=== PATIENT | female | born 1955 | race Hispanic/Latino ===

== ENCOUNTER 2019-05-24 16:11 | Inpatient (IN) | payer OTHER ==
[~2019-05-24] VITALS: Ht 157.5 cm; Wt 131.5 kg
[~2019-05-24 16:11] MED LIST: AMITRIPTYLINE H25 MG PO; ESIDRIX25 MG PO; GABAPENTIN300 MG PO; GEMFIBROZIL600 MG PO; LANTUS100 UNITS/ SC; METFORMIN HCL500 M2 PO; METOPROLOL TART50 MG PO; SERTRALINE HCL50 MG PO; ULTRAM 50MG50 MG PO; VICTOZA 3-0.6 MG/0.1; ZESTRIL10 MG PO
--- OUTSIDE RECORDS SUMMARY | 2019-05-24 16:13 | XMS REPORT ---
Author Author [facility] Address Unknown Phone Unavailable Care Team Providers Care Presales Senior Specialist Name Role Phone Unavailable Unavailable Payers Payer Name Policy Type Policy Number Effective Date Expiration Date Problems This patient has no known problems. Allergies, Adverse Reactions, Alerts Allergy Name Allergy Type Status Severity Reaction(s) Onset Date Inactive Date Treating Clinician Comments No Known Allergies DA Active U 2018-11-23 00:00:00 Medications This patient has no known medications. Encounters Start Date/Time End Date/Time Encounter Type Admission Type Attending Clinicians Care Facility Care Department Encounter ID 2019-05-20 06:44:00 2019-05-20 06:44:00 Outpatient [id number] Results Test Description Test Time Test Comments Text Results Atomic Results Result Comments - XR SHOULDER 1 V LT 2019-01-05 14:04:00 FAX: Danyell Moore MD [phone] [place]: St: [facility] FAX: Fannie Oconnor MD [phone] Name: MARQUIS DYE [facility] : 1955 Age/S: 63/F [address] Unit #: [id number] Loc: [place] [address] Phys: Danyell France MD Acct: [id number] Dis Date: Status: REG CLI PHONE #: [phone] Exam Date: 01/05/2019 1447 FAX #: [phone] Reason: PICC PLACEMENT EXAMS: CPT CODE: [id number] XR SHOULDER 1 V LT 06274 Study: - XR SHOULDER 1 V LT 01/05/2019 1:12 PM Patient Name: MARQUIS DYE MR: [id number] : 1955; Age: 63 years y/o Female Ordering Physician: Danyell France MD Clinical Indication: PICC PLACEMENT Comparison: January 05, 2019 x-ray LEFT SHOULDER, 1 view: No acute fracture, dislocation, or suspicious focal osseous lesion. Left PICC line tip overlies the right superior vena cava The soft tissues are normal. Impression: Left PICC line tip projects in good position. SL: [id number] Electronically Signed by Og Boudreaux on 9 at 1404 Reported and signed by: Ricardo Boudreaux M.D. CC: Danyell France MD; Fannie Barreto MD Technologist: RT Lake(R) Trnscrd Date/Time/By: 01/05/2019 (3260) : By: [email or web address] Orig Print D/T: S: 01/05/2019 (7957) PAGE 1 Signed Report - XR SHOULDER 1 V RT 2019-01-05 12:42:00 FAX: Danyell Moore MD [phone] [place]: St: REG FAX: Fannie Oconnor MD [phone] Name: MARQUIS DYE [facility] Pietro Spann : 1955 Age/S: 63/F [address] [place] [address] Unit #: [id number] Loc: [place] [address] Phys: Danyell France MD Acct: [id number] Dis Date: Status: REG CLI PHONE #: [phone] Exam Date: 01/05/2019 1237 FAX #: [phone] Reason: CHECK PICC PLACEMENT EXAMS: CPT CODE: [id number] XR SHOULDER 1 V RT 11759 Study: - XR SHOULDER 1 V RT 01/05/2019 11:53 AM Patient Name: MARQUIS DYE MR: [id number] : 1955; Age: 63 years y/o Female Ordering Physician: Danyell France MD Clinical Indication: CHECK PICC PLACEMENT Comparison: December 30, 2018 x-ray RIGHT SHOULDER, 1 view: No acute fracture, dislocation, or suspicious focal osseous lesion. Right PICC line tip overlies the proximal superior vena cava. The soft tissues are normal. Impression: Right PICC line tip overlies the proximal superior vena cava. SL: [id number] at 1242 Reported and signed by: Ricardo Boudreaux M.D. CC: Danyell France MD; Fannie Barreto MD Technologist: Shelly Salgado, RT(R) Trnscrd Date/Time/By: 01/05/2019 (8675) : By: [email or web address] Orig Print D/T: S: 01/05/2019 (6333) PAGE 1 Signed Report - XR SHOULDER 1 V RT 2018-12-30 13:17:00 FAX: Danyell Moore MD [phone] [place]: St: [facility] FAX: Fannie Oconnor MD [phone] Name: MARQUIS DYE [facility] [place] : 1955 Age/S: 63/F [address] [place] [address] Unit #: [id number] Loc: [place] [address] Phys: Danyell France MD Acct: [id number] Dis Date: Status: REG SDC PHONE #: [phone] Exam Date: 12/30/2018 1315 FAX #: [phone] Reason: PICC PLACEMENT EXAMS: CPT CODE: [id number] XR SHOULDER 1 [place] [address]43 RIGHT SHOULDER, ONE VIEW: HISTORY: Line placement. COMPARISON EXAM: No recent pertinent exams for comparison. This single portable view was obtained at 1306 hours on 12/30/2018 and shows placement of a right arm PICC with the tip projected over the superior luther a cava. IMPRESSION: 1. Status post right arm PICC placement. SL:01 at 1317 Reported and signed by: Tino Magallon M.D. CC: Danyell France MD; Fannie Barreto MD Technologist: RT Candace(R), RTT Trnscrd Date/Time/By: 12/30/2018 (3131) : By: [email or web address] Orig Print D/T: S: 12/30/2018 (4180) PAGE 1 Signed Report - MRI LOW EXT W/O CONT LT 2018-12-18 11:20:00 FAX: Julián Louie MD [phone] [place]: St: REG FAX: Danyell Moore MD [phone] FAX: Fannie Oconnor MD [phone] Name: MARQUIS DYE [facility] : 1955 Age/S: 63/F [address] [place] [address] Unit #: [id number] Loc: [place] [address] Phys: Julián Donaldson MD Acct: [id number] Dis Date: Status: REG RCR PHONE #: [phone] Exam Date: 12/18/2018 0849 FAX #: [phone] Reason: L97.522 LT GREAT TOE ULCER/OSTEOMYELITIS EXAMS: CPT CODE: [id number] [place] [address] - MRI LOW EXT W/O CONT LT, 12/18/2018 7:06 AM INDICATION: Great toe ulcer. Osteomyelitis COMPARISON: None TECHNIQUE: Multi- planar, multi-sequence MR imaging of the left foot was performed using routine protocol without gadolinium-based contrast. . FINDINGS: . Bones: There is T2 hyperintensity within the distal aspect 1st proximal phalanx. Very faint areas of diminished T1 signal. Otherwise marrow signals within normal limits. No evidence for acute fracture. . Soft tissues: There is subcutaneous edema along the dorsum of the foot and more focally along the great toe. There appears to be a small wound along the plantar aspect of the great toe. There is a small amount of T2 hyperintense fluid extending along the wound. Otherwise soft tissues are unremarkable. .] Joints: Anatomic alignment of the midfoot. Mild degenerative changes at the 1st MTP joint. Otherwise joint spaces are preserved. Negative for joint effusion. . Extensor tendons: Partially imaged but within normal limits. . Peroneal tendons: Partially imaged but within normal limits. . Flexor tendons: Moderate fluid along the flexor tendons at the K[place] of Sán[place] . Plantar fascia: Unremarkable. . Additional Comments: None. IMPRESSION: 1. Soft tissue wound along the plantar aspect of foot. Adjacent fluid within the wound track and/or developing phlegmon. 2. Mild edema in the 1st proximal phalanx which may be secondary to hyperemia versus early osteomyelitis. Suggest follow-up imaging. 3. Mild dorsal subcutaneous edema either generalized edema or cellulitis. PAGE 1 Signed Report (CONTINUED) FAX: Julián Louie MD [phone] [place]: St: REG FAX: Danyell Moore MD [phone] FAX: Fannie Oconnor MD [phone] Name: MARQUIS DYE [facility] : 1955 Age/S: 63/F [address] [place] [address] Unit #: [id number] Loc: [place] [address] Phys: Julián Donaldson MD Acct: [id number] Dis Date: Status: REG RCR PHONE #: [phone] Exam Date: 12/18/2018 0849 FAX #: [phone] Reason: L97.522 LT GREAT TOE ULCER/OSTEOMYELITIS EXAMS: CPT CODE: [id number] MRI LOW EXT W/[place] [address] <Continued> SL: KRE-H at 1120 Reported and signed by: Miles Garcia M.D. CC: Julián Donaldson MD; Danyell France MD; Fannie Barreto MD Technologist: Haley Eagle, RT(R)(MR) Trnscrd Date/Time/By: 12/18/2018 (1120) : By: [email or web address] Orig Print D/T: S: 12/18/2018 (1123) PAGE 2 Signed Report SED RATE WESTERGREN 2018-11-30 12:39:00 SED RATE WESTERGREN (test code=SEDW) 48 mm/hr 0-20 - XR TOE(S) 2+V [id number] 12:16:00 FAX: Lani Lopez Si [phone] [place]: St: REG FAX: Julián Louie MD [phone] FAX: Danyell Moore MD [phone] Name: MARQUIS DYE [facility] : 1955 Age/S: 63/F [address] [place], [place] [address] Unit #: [id number] Loc: [place] [address] Phys: Julián Donalsdon MD Acct: [id number] Dis Date: Status: REG RCR PH ONE #: [phone] Exam Date: 11/30/2018 1159 FAX #: [phone] Reason: L97.522, LEFT GREAT TOE ULCER.E11.621 , DM EXAMS: CPT CODE: [id number] XR TOE(S) 2+[place] [address] Study: - XR T OE(S) 2+V LT 11/30/2018 10:41 AM Patient Name: MARQUIS CHOUDHARY [facility] MR: [id number] : 1955; Age: 63 years y/o Female [facility] Physician: Julián Donaldson MD Clinical Indication: L97.522, LEFT GREAT TOE ULCER.E11.621 , DM Comparison: None Left great toe, 3 views: 1. No acute fracture, dislocatio n, or suspicious focal osseous lesion. A focal projection laterally from the distal aspect of the 5th metatarsal on the AP image either represents old healed injury or small osteochondroma. 2. Mild osteoart hritis at the 1st MTP joint. 3. Mild to moderate diffuse soft tis td thickening about the left great toe consistent with edema from inflamm ation or infection. SL: [id number] at 1216 Reported and signed by: Ron Wharton M.D. CC: Trini Lopez MD; Julián ackerman MD; Danyell France MD Technologist: Cherelle Flores RT(R) Trnscrd Date/Time/By: 11/30/2018 (121) : By: [email or web address] Orig Print D/T: S: 11/30/2018 (0279) PAGE 1 Signed Report [id number] 11:40:00* Test Item Value Reference Range Comments PREALBUMIN (test code=PREALB) 19.5 mg/dL 16.0-40.0 C REACTIVE [id number] 11:39:00* Test Item Value Reference Range Comments C REACTIVE PROTEIN (test code=CRP) 12.3 MG/L 0.0-2.9 HGBA1C%2018-11-30 11:35:00* Test Item Value Reference Range Comments HGBA1C% (test code=HGBA1C%) 7.3 %A1C 4.8-6.0
[2019-05-24] MEDS ORDERED: SODIUM CHLORIDE 0.9% 1000ML 1,000 ML IV STA (16:37)
[2019-05-24] MEDS ORDERED: VANCOMYCIN 1GM/NS 250 ML 250 ML IV ONE (16:45)
[2019-05-24] MEDS ORDERED: PIPER-TAZ 3.375 GM 50 ML IV ONE (16:45)
[2019-05-24] MEDS ORDERED: SODIUM CHLORIDE 0.9% 1000ML 1,000 ML ONE (17:35)
--- NOTE | 2019-05-24 17:50 | NUR ---
MD NOTIFIED OF PT BP 78/21 PER MD GIVE 2 LITERS NS BOLUS; ORDER READ BACK AND CONFIRMED
--- NOTE | 2019-05-24 18:04 | NUR ---
NOTIFIED OF PT BP ; PER SET UP CENTRAL LINE KIT
[2019-05-24 18:35] LABS: BASOPHILS # (AUTO) 0.1 (0.0-0.1); BASOPHILS % 0.4 % (0.0-1.0); EOSINOPHILS # (AUTO) 0.2 (0.0-0.4); EOSINOPHILS % 1.2 % (0.0-6.0); HEMATOCRIT 33.1 % (34.2-44.1); LYMPHOCYTES # (AUTO) 3.3 (1.0-3.2); LYMPHOCYTES % 20.5 % (18.0-39.1); MEAN CORPUSCULAR HEMOGLOBIN 28.6 pg (28-32); MEAN CORPUSCULAR HGB CONC 33.2 g/dL (31-35); MEAN CORPUSCULAR VOLUME 86.2 fL (81-99); MONOCYTES # (AUTO) 1.8 (0.2-0.8); MONOCYTES % 11.3 % (4.4-11.3); NEUTROPHILS # (AUTO) 10.2 (2.1-6.9); NEUTROPHILS % 64.2 % (38.7-80.0); PLATELET COUNT 180 x10e3/uL (140-360); RED BLOOD COUNT 3.84 x10e6/uL (3.6-5.1); RED CELL DISTRIBUTION WIDTH 14.6 % (11.7-14.4)
[2019-05-24 18:39] LABS: INR 0.95; PROTHROMBIN TIME 13.2 seconds (11.9-14.5)
[2019-05-24 18:54] LABS: ALANINE AMINOTRANSFERASE 33 IU/L (0-55); ALBUMIN 2.9 g/dL (3.5-5.0); ALBUMIN/GLOBULIN RATIO 0.8 (0.8-2.0); ALKALINE PHOSPHATASE 104 IU/L (40-150); ANION GAP 15.5 mmol/L (8-16); BLOOD UREA NITROGEN 43 mg/dL (7-26); BUN/CREATININE RATIO 13 (6-25); CALCIUM 8.8 mg/dL (8.4-10.2); CARBON DIOXIDE 20 mmol/L (22-29); CHLORIDE 97 mmol/L (98-107); CREATINE KINASE 195 IU/L (29-168); CREATININE, SERUM 3.27 mg/dL (0.57-1.11); EST GLOMERULAR FILTRATION RATE 14 ML/MIN (60-); GLUCOSE 156 mg/dL (74-118); MAGNESIUM 2.4 MG/DL (1.3-2.1); POTASSIUM 4.5 mmol/L (3.5-5.1); SODIUM 128 mmol/L (136-145)
[2019-05-24 19:04] LABS: B-TYPE NATRIURETIC PEPTIDE2 < 10.0 pg/mL (0-100)
[2019-05-24] MEDS ORDERED: NOREPINEPHRINE INJ 4MG/4ML 8 MG in DEXTROSE 5% 250ML 250 ML IV PRN (19:15)
[2019-05-24] MEDS ORDERED: NOREPINEPHRINE 8 MG/D5W 250 ML 250 ML IV PRN (19:15)
[2019-05-24 19:26] LABS: ACETAMINOPHEN < 3 ug/mL (10-30); SALICYLATE < 5.0 mg/dL (0-30)
[2019-05-24] MEDS ORDERED: ONDANSETRON HCL INJ 2MG/ML 2ML 2 MG/ML VIAL IV PRN (20:00)
[2019-05-24 20:06] LABS: BILIRUBIN,URINE NEGATIVE (NEGATIVE); CLARITY,URINE SL CLOUDY (CLEAR); COLOR,URINE YELLOW (YELLOW); KETONES,URINE NEGATIVE (NEGATIVE); LEUKOCYTE ESTERASE ,URINE MODERATE (NEGATIVE); NITRITE,URINE NEGATIVE (NEGATIVE); PROTEIN,URINE DIPSTICK NEGATIVE (NEGATIVE); URINE UROBILINOGEN 0.2 mg/dL (0.2 - 1)
--- NOTE | 2019-05-24 20:08 | Diagnostic Imaging Report ---
EXAMINATION: Head CT without contrast. HISTORY:Syncope and fall. Hypotension. COMPARISON:None. TECHNIQUE: Multidetector axial images were obtained from the foramen magnum to the vertex without contrast. The images were reconstructed using brain and bone algorithms. Thin section brain images were reformatted into coronal and sagittal planes. Dose modulation, iterative reconstruction, and/or weight based adjustment of the mA/kV was utilized to reduce the radiation dose to as low as reasonably achievable. Intravenous contrast: None IMAGE QUALITY: Suboptimal evaluation particularly of skull base and posterior fossa structures due to streak artifacts. FINDINGS: Skull/scalp: Mild left frontal scalp soft tissue edema. No radiopaque foreign body or soft tissue emphysema. No acute depressed or displaced calvarial fracture. Parenchyma: Nonspecific few, scattered supratentorial white matter hypodensity are likely related to small vessel ischemic changes. No acute hemorrhage, mass or acute major vascular territorial infarct. Arteries: No density suggestive of thrombosis. Dural sinuses: No abnormal density suggestive of thrombosis. Ventricles: No hydrocephalus or displacement. Extra-axial spaces: No abnormal density. Brain volume: Normal for age. Craniocervical junction: No mass, Chiari malformation, or basilar invagination. Sella: No mass. Paranasal/mastoid sinuses: Imaged portions unremarkable. IMPRESSION: 1. Mild left frontal scalp soft tissue edema. No acute fracture. 2. No acute posttraumatic intracranial abnormality. 3. Mild supratentorial white matter microvascular ischemic changes. Signed by: Dr. Monique Perez M.D. on 05/24/2019 8:05 PM
[2019-05-24 20:10] LABS: AMPHETAMINES SCREEN,URINE NEGATIVE (NEGATIVE); BENZODIAZEPINES SCREEN,URINE NEGATIVE (NEGATIVE); PHENCYCLIDINE SCREEN,URINE NEGATIVE (NEGATIVE)
[2019-05-24 20:17] LABS: BACTERIA,URINE MODERATE /HPF; EPITHELIAL CELLS,URINE FEW /LPF
[2019-05-24 20:18] LABS: AMORPHOUS SEDIMENT,URINE MODERATE (FEW); RENAL EPITHELIAL CELLS,URINE RARE
--- NOTE | 2019-05-24 20:19 | Diagnostic Imaging Report ---
History: Status post fall. Comparison studies: None Technique: Axial images were obtained through the cervical region.. Coronal and sagittal images reconstructed from the axial data. Dose modulation, iterative reconstruction, and/or weight based adjustment of the mA/kV was utilized to reduce the radiation dose to as low as reasonably achievable. Intravenous contrast: None Findings: Fractures: None. Soft tissue injuries: None. Atlantoaxial articulation: Intact. Alignment: Loss of normal cervical lordosis is either positional or due to muscle spasm. No scoliosis. No subluxation. Cervicomedullary junction: No abnormalities. The foramen magnum is patent. Soft tissues: A 1.3 cm ill-defined hypodense nodule in left lobe of thyroid gland. Vertebrae: No fractures, infection or neoplasm. Degenerative changes: Moderate degenerative changes with subchondral cyst in the anterior atlantodental joint. C3-C4: Mild left foraminal stenosis due to facet and uncovertebral arthrosis. C4-C5: Mild left foraminal stenosis due to facet and uncovertebral arthrosis. C5-C6: Mild left foraminal stenosis due to uncovertebral arthrosis. C6-C7: Mild degenerative disc disease. Posterior disc osteophyte complex without canal stenosis. Incidental finding: Age indeterminate fracture or dislocation of right clavicle (only seen in the marine equipment test engineer image). IMPRESSION: 1. No acute cervical spine fracture or dislocation. Loss of normal cervical lordosis is either positional or due to muscle spasm. 2. Ligament, spinal cord and or vascular abnormalities cannot be excluded on the basis of this examination. 3. Cervical spondylosis as detailed above. 4. Age indeterminate fracture/dislocation of right clavicle (only seen in marine equipment test engineer image). Signed by: Dr. Monique Perez M.D. on 05/24/2019 8:16 PM
[2019-05-24 20:31] LABS: EOSINOPHILS % (MANUAL) 3 % (0-7); LYMPHOCYTES % (MANUAL) 11 % (19-48); MONOCYTES % (MANUAL) 7 % (3.4-9.0); NEUTROPHILS % (MANUAL) 74 % (40-74); PLATELET ESTIMATE ADEQUATE; PLATELET MORPHOLOGY COMMENT NORMAL; RBC MORPHOLOGY COMMENT NORMAL
--- NOTE | 2019-05-24 20:39 | Diagnostic Imaging Report ---
EXAM: CHEST XRAY LINE PLACEMENT DATE: 05/24/2019 7:01 PM INDICATION: ^S/P RIGHT IJ CENTRAL LINE ^20190524 ^1910 COMPARISON: None FINDINGS: Suboptimal evaluation of the chest due to underpenetrated technique. Lines and tubes: A right IJ catheter is present. The tip is traced to the lower SVC level. Cardiac silhouette is enlarged. There is central pulmonary vascular congestion. Opacity at the lung bases may represent edema or small effusions. No large pneumothorax. Upper abdomen unremarkable. There is a fracture of the right clavicle with one bone width displacement near the junction of the proximal and distal thirds. The appearance suggests this may be chronic. IMPRESSION: 1. Cardiomegaly with pulmonary vascular congestion and edema or small effusions at the lung bases. 2. Right IJ catheter extends to the distal SVC. No pneumothorax is visualized. 3. Right clavicular fracture which may be chronic. Signed by: Dr. Kulwant Villalta M.D. on 05/24/2019 8:35 PM
--- NOTE | 2019-05-24 20:45 | Diagnostic Imaging Report ---
EXAM: FOOT LEFT COMPLETE DATE: 05/24/2019 4:37 PM INDICATION: Fall ^HYPOTENSION SYNCOPE ^20190524 ^1910 COMPARISON: None FINDINGS: 3 views of the left foot shows a nondisplaced comminuted fracture of the first proximal phalanx. There is extensive sclerosis suggesting that at least a portion of this fracture may be subacute. A plantar calcaneal enthesophyte is noted. Superficial surrounding soft tissue unremarkable. IMPRESSION: Comminuted fracture with sclerosis in the first proximal phalanx. This may represent subacute fracture although at the distal aspect of the phalanx, extending into the interphalangeal joint, there is an apparent acute component. Signed by: Dr. Kulwant Villalta M.D. on 05/24/2019 8:42 PM
[2019-05-24 21:30] VITALS: BP 118/67
[2019-05-24 22:00] VITALS: BP 102/55
[2019-05-24] MEDS ORDERED: PIPERACILLIN/TAZO 2.25 GM 50 ML IV SCH (22:00)
[2019-05-24 23:00] VITALS: BP 95/56
[2019-05-24] MEDS: FAMOTIDINE 20 MG/2 ML VIAL IV SCH (23:24)
[2019-05-24] MEDS: AZITHROMYCIN 500MG/NS 250 ML 250 ML IV SCH (23:24)
[2019-05-24] MEDS: MORPHINE SULFATE 2 MG/ML SYR 1ML IV PRN (23:25)
[2019-05-25] VITALS (25 sets, daily range): BP systolic 87–128; BP diastolic 47–77
[2019-05-25] MEDS: MORPHINE SULFATE 2 MG/ML SYR 1ML IV PRN ×5 (02:30→21:23)
[2019-05-25 05:12] LABS: BASOPHILS # (AUTO) 0.1 (0.0-0.1); BASOPHILS % 0.5 % (0.0-1.0); EOSINOPHILS # (AUTO) 0.3 (0.0-0.4); HEMATOCRIT 33.8 % (34.2-44.1); HEMOGLOBIN 11.1 g/dL (12.0-16.0); LYMPHOCYTES # (AUTO) 3.7 (1.0-3.2); LYMPHOCYTES % 28.5 % (18.0-39.1); MEAN CORPUSCULAR HEMOGLOBIN 28.2 pg (28-32); MEAN CORPUSCULAR HGB CONC 32.8 g/dL (31-35); MONOCYTES # (AUTO) 1.9 (0.2-0.8); MONOCYTES % 14.6 % (4.4-11.3); NEUTROPHILS # (AUTO) 6.9 (2.1-6.9); NEUTROPHILS % 52.5 % (38.7-80.0); PLATELET COUNT 204 x10e3/uL (140-360); RED BLOOD COUNT 3.93 x10e6/uL (3.6-5.1); RED CELL DISTRIBUTION WIDTH 14.4 % (11.7-14.4)
[2019-05-25 05:33] LABS: CREATINE KINASE 143 IU/L (29-168)
[2019-05-25 06:03] LABS: ALBUMIN 2.9 g/dL (3.5-5.0); ALBUMIN/GLOBULIN RATIO 0.8 (0.8-2.0); ANION GAP 10.8 mmol/L (8-16); CHOL/HDL RATIO 4.8 (3.0-3.6); CREATININE, SERUM 1.48 mg/dL (0.57-1.11); POTASSIUM 3.8 mmol/L (3.5-5.1)
[2019-05-25] MEDS: PIPERACILLIN/TAZO 2.25 GM 50 ML IV SCH ×3 (06:17→21:19)
--- NOTE | 2019-05-25 06:39 | NUR ---
H&p CC:fall and skin rash HPI: 63yoF, PCP , had a fall at home shile using walker. Pt recently had left great toe biopsy for chronic swelling. Had skin rash along breast and back for several days. PMH: morbid obesity, cellulitis/abscess of vulva, benign breast tumor, DM2, HLD, HTN, depression, OM of left foot great toe, diabetic neuropathy, chronic left foot great toe fracture, clavicular fx many years ago PShx: tubal ligation, breast tumor-benign, cholecystectomy, groin abscess Allergies see emr Fh/SH; ; no etoh/cigs; ambulatory dysfunction using walker Meds; see emr ROS; no f/c/s/N/V/D/WILLIAM/vision changes/cp/sob/leg pain/dizziness v/s revd PE: tired appearing anicteric ns1s2 mod bs left breast extending to left axilla and left back with dermatomal vesicular erythematous rash no e/t legs a&ox3; nazario flat affect labs/meds revd A/P: Septic Sepsis due to UTI Shingles Right clavicular fracture- chronic Left 1st phalanx fracture- chronic Elderly fall Diabetic neuropathy DM2 TOY 1st Left phalanx fx Morbid obesity BMI 53 DM2 HTN HLD Depression PLAN IV abx; IV acyclovir; ID consult; isolation PT consult hba1c/lipids scd dispo: f/u clinical improvement; cct>35mins. Michelet Cardozo MD, PhD.
[2019-05-25] MEDS ORDERED: DEXTROSE 50% SYRINGE 50 ML IV PRN ×2 (06:45→19:00)
--- NOTE | 2019-05-25 07:34 | Diagnostic Imaging Report ---
A single frontal view of the chest. HISTORY: Sepsis COMPARISON: Chest radiograph May 24, 2019 DISCUSSION: Portable technique, limits sensitivity of the exam. Soft tissue attenuation partially limits sensitivity of the exam. Overlying monitoring leads. Left anterior oblique rotation. Tubes/Lines: Right approach internal jugular intravenous contrast, the tip projects in the region of the distal superior vena cava. Lungs and pleura: Low lung volumes result in bibasilar vascular crowding, accentuation of the pulmonary interstitial markings, central pulmonary vasculature, and the cardiac silhouette. Allowing for these limitations, the findings are as follows: Diffusely increased interstitial markings. No definite pleural effusion or pneumothorax is identified. Heart and mediastinum: The cardiac silhouette appear(s) enlarged. Bones and soft tissues: Appear unremarkable, given this limited exam. IMPRESSION: Allowing for differences in lung volumes, stable cardiomegaly, central pulmonary vascular congestion, and mild pulmonary edema. Signed by: Dr. Mike Interiano D.O., M.M.M. on 05/25/2019 7:31 AM
[2019-05-25 07:39] LABS: EOSINOPHILS % (MANUAL) 1 % (0-7); MONOCYTES % (MANUAL) 11 % (3.4-9.0); NEUTROPHILS % (MANUAL) 58 % (40-74)
[2019-05-25 07:41] LABS: LYMPHOCYTES % (MANUAL) 28 % (19-48); PLATELET ESTIMATE ADEQUATE; PLATELET MORPHOLOGY COMMENT NORMAL; RBC MORPHOLOGY COMMENT NORMAL
[2019-05-25] MEDS: FAMOTIDINE 20 MG/2 ML VIAL IV SCH ×2 (08:47→21:19)
[2019-05-25] MEDS: GABAPENTIN 300 MG CAP PO SCH ×2 (08:47→16:58)
[2019-05-25] MEDS: SERTRALINE HCL 50 MG TAB PO SCH (08:47)
[2019-05-25] MEDS ORDERED: ACYCLOVIR SODIUM INJ 500 MG in SODIUM CHLORIDE 0.9% 100 ML 100 ML IV SCH (10:30)
[2019-05-25] MEDS: ACYCLOVIR 200 MG CAP PO SCH ×3 (12:21→21:19)
[2019-05-25 13:58] LABS: CREATINE KINASE 108 IU/L (29-168)
--- NOTE | 2019-05-25 14:25 | Consultation ---
DATE OF CONSULTATION: 05/25/2019 INFECTIOUS DISEASE CONSULT REASON FOR CONSULTATION: Shingles. Thank you, Dr. Cardozo, for asking me to see this patient. HISTORY OF PRESENT ILLNESS: The patient is a 63-year-old woman referred for shingles. She was admitted through the emergency department with syncope and severe sepsis with shock and acute cardiovascular and renal failure. She presented to the emergency department because of a fall at home. The patient did not have fever, chills, cough, shortness of breath, nausea, vomiting, abdominal pain, dysuria, or loss of consciousness. However, the patient had marked diarrhea several days earlier, which resolved spontaneously. Also, she reported taking a lot of NSAIDs for musculoskeletal pain a few weeks earlier. The patient had left great toe bone biopsy to evaluate suspected osteomyelitis a day or so earlier. In the emergency department, she was noted to have temperature of 98.6 degrees Fahrenheit, pulse rate 97, respiratory rate 19, blood pressure 80/51, and oxygen saturation 91% on room air. Initial laboratory studies showed blood leukocyte count of 15,870 with 74% neutrophils, BUN 43, creatinine 3.27, and troponin less than 0.001. PAST MEDICAL HISTORY: Diabetes mellitus type 2, hypertension, hyperlipidemia, suspected left great toe osteomyelitis, ambulatory dysfunction (patient uses a walker at home), and depression. PAST SURGICAL HISTORY: Cholecystectomy, tubal ligation, breast cystectomy, and left great toe bone biopsy on 05/20/2019. ALLERGIES: NO KNOWN DRUG ALLERGIES. MEDICATIONS: See MAR. The current antimicrobial is acyclovir 500 mg IV piggyback q.12 hours. He received vancomycin and Zosyn intravenously earlier. IMMUNIZATION: She received tetanus-diphtheria vaccine in the past. She does not recall receiving shingles or pneumococcal vaccination. FAMILY HISTORY: Significant for hypertension. SOCIAL HISTORY: No alcohol, tobacco, or recreational drug use. REVIEW OF SYSTEMS: As per history of present illness. The patient has developed crops of blisters with pain on the left chest wall. PHYSICAL EXAMINATION: GENERAL: No acute distress. VITAL SIGNS: T-max 98.8, pulse rate 91, respiratory rate 19, blood pressure 111/63, weight 290 pounds. HEENT: Normocephalic and atraumatic. There is no icterus or injection of conjunctivae. There is no ear or nasal discharge. Dry oral mucosa. No pharyngeal erythema. NECK: Supple. No meningismus. LUNGS: Good air entry bilaterally. HEART: Normal S1 and S2. Regular. ABDOMEN: Soft and nontender. EXTREMITIES: There is no edema, clubbing, or cyanosis. The left great toe biopsy site dressing is in place. The dorsalis pedis and posterior tibial pulses are palpable in both feet. But the feet are cool to touch. SKIN: There are crops of blisters in a dermatomal distribution on the left chest. There is no ulcer. STORM CHASER: Awake, alert, and oriented to person, place, and time. There is decreased sensation to monofilament test of the feet. LABORATORY AND DIAGNOSTICS: WBC 13,050, hemoglobin 11.1, platelet 204,000, neutrophils 52.5, lymphocytes 28.5, monocytes 14.6, eosinophils 2, basophils 0.5. BUN 31, creatinine 1.48, AST 32, ALT 41, alkaline phosphatase 88, total bilirubin 0.7. Blood culture was collected, but is pending. Chest x-ray showed stable cardiomegaly and central pulmonary vascular congestion and mild pulmonary edema. IMPRESSION: 1. Shingles present on admission. 2. Suspected osteomyelitis of the left great toe, being evaluated outpatient. 3. Dehydration. 4. Acute kidney injury secondary to dehydration, improving. 5. Fall at home. 6. Diabetes mellitus type 2 with peripheral neuropathy. PLAN: 1. Change acyclovir to 800 mg by mouth five times a day for 7 to 10 days. intravenous dosing should be avoided because of renal impairment. The patient is to follow up with her Infectious Diseases and Orthopedic doctors outpatient for further workup and management of osteomyelitis of the left great toe. 2. Cautious rehydration. 3. Apply wet compresses to the lesions on the left chest wall to reduce the itching. MD JASPAL Wright/LYNDSAY /[id number] MTDD
--- NOTE | 2019-05-25 15:00 | NUR ---
LEVOPHED OFF BP 105/56. WILL MONITOR CLOSELY.
[2019-05-25] MEDS: AZITHROMYCIN 500MG/NS 250 ML 250 ML IV SCH (21:19)
[2019-05-25] MEDS: INSULIN REGULAR, HUMAN 100 UNIT/1 ML 3ML VIAL SQ SCH (21:19)
[2019-05-26] VITALS (22 sets, daily range): BP systolic 99–155; BP diastolic 46–99
[2019-05-26] MEDS: MORPHINE SULFATE 2 MG/ML SYR 1ML IV PRN ×4 (01:50→21:50)
[2019-05-26] MEDS: PIPERACILLIN/TAZO 2.25 GM 50 ML IV SCH ×3 (05:30→21:00)
[2019-05-26] MEDS: ACYCLOVIR 200 MG CAP PO SCH ×5 (05:30→21:16)
--- NOTE | 2019-05-26 05:54 | NUR ---
IM- progress note O/N no events ROS; no f/c/s/N/V/D/WILLIAM/vision changes/cp/sob/leg pain/dizziness v/s revd PE: tired appearing anicteric ns1s2 mod bs left breast extending to left axilla and left back with dermatomal vesicular erythematous rash no e/t legs a&ox3; nazario flat affect labs/meds revd A/P: Septic Sepsis due to UTI Shingles Right clavicular fracture- chronic Left 1st phalanx fracture- chronic Elderly fall Diabetic neuropathy DM2 TOY 1st Left phalanx fx Morbid obesity BMI 53 DM2 HTN HLD Depression PLAN IV abx; IV acyclovir; ID consult; isolation PT consult hba1c/lipids scd dispo: f/u clinical improvement; cct>35mins. 05/26 Hba1c/LDL 06/11. renal fn improving; check labs; cct>35mins. Michelet Cardozo MD, PhD.
[2019-05-26 06:12] LABS: BASOPHILS # (AUTO) 0.1 (0.0-0.1); BASOPHILS % 0.8 % (0.0-1.0); EOSINOPHILS # (AUTO) 0.5 (0.0-0.4); EOSINOPHILS % 4.1 % (0.0-6.0); HEMOGLOBIN 10.5 g/dL (12.0-16.0); LYMPHOCYTES # (AUTO) 4.1 (1.0-3.2); LYMPHOCYTES % 35.5 % (18.0-39.1); MEAN CORPUSCULAR HEMOGLOBIN 27.9 pg (28-32); MEAN CORPUSCULAR HGB CONC 31.8 g/dL (31-35); MEAN CORPUSCULAR VOLUME 87.8 fL (81-99); MONOCYTES # (AUTO) 1.4 (0.2-0.8); MONOCYTES % 11.6 % (4.4-11.3); NEUTROPHILS # (AUTO) 5.4 (2.1-6.9); NEUTROPHILS % 46.7 % (38.7-80.0); PLATELET COUNT 201 x10e3/uL (140-360); RED BLOOD COUNT 3.76 x10e6/uL (3.6-5.1); RED CELL DISTRIBUTION WIDTH 14.6 % (11.7-14.4)
[2019-05-26 06:29] LABS: ANION GAP 10.1 mmol/L (8-16); BLOOD UREA NITROGEN 19 mg/dL (7-26); BUN/CREATININE RATIO 25 (6-25); CALCIUM 8.8 mg/dL (8.4-10.2); CARBON DIOXIDE 28 mmol/L (22-29); CHLORIDE 101 mmol/L (98-107); CREATININE, SERUM 0.75 mg/dL (0.57-1.11); EST GLOMERULAR FILTRATION RATE > 60 ML/MIN (60-); GLUCOSE 114 mg/dL (74-118); POTASSIUM 4.1 mmol/L (3.5-5.1); SODIUM 135 mmol/L (136-145)
[2019-05-26] MEDS ORDERED: ACETAMINOPHEN/CODEINE 300MG - 30MG TAB PO PRN (06:45)
[2019-05-26] MEDS: INSULIN REGULAR, HUMAN 100 UNIT/1 ML 3ML VIAL SQ SCH ×4 (07:30→21:19)
[2019-05-26] MEDS: FAMOTIDINE 20 MG/2 ML VIAL IV SCH ×2 (08:05→19:53)
[2019-05-26 08:31] LABS: PLATELET ESTIMATE ADEQUATE; PLATELET MORPHOLOGY COMMENT NORMAL; RBC MORPHOLOGY COMMENT NORMAL
[2019-05-26] MEDS: SERTRALINE HCL 50 MG TAB PO SCH (08:33)
[2019-05-26] MEDS: GABAPENTIN 300 MG CAP PO SCH ×2 (08:33→17:24)
[2019-05-26] MEDS ORDERED: SODIUM CHLORIDE 0.9% 250ML 250 ML ONE (12:37)
[2019-05-26] MEDS: AZITHROMYCIN 500MG/NS 250 ML 250 ML IV SCH (19:52)
[2019-05-26] MEDS: HYDROCODONE/APAP 5MG-325MG TAB PO PRN (20:22)
[2019-05-27] VITALS (8 sets, daily range): BP systolic 127–168; BP diastolic 74–92
[2019-05-27] MEDS: MORPHINE SULFATE 2 MG/ML SYR 1ML IV PRN ×5 (02:10→23:17)
[2019-05-27] MEDS ORDERED: SODIUM CHLORIDE 0.9% 250ML 250 ML ONE (04:30)
[2019-05-27] MEDS: ACYCLOVIR 200 MG CAP PO SCH ×5 (04:41→20:34)
[2019-05-27] MEDS: PIPERACILLIN/TAZO 2.25 GM 50 ML IV SCH (04:41)
--- NOTE | 2019-05-27 07:15 | NUR ---
IM- progress note O/N no events ROS; no f/c/s/N/V/D/WILLIAM/vision changes/cp/sob/leg pain/dizziness v/s revd PE: tired appearing anicteric ns1s2 mod bs left breast extending to left axilla and left back with dermatomal vesicular erythematous rash no e/t legs a&ox3; nazario flat affect labs/meds revd A/P: Septic Sepsis due to UTI Shingles Right clavicular fracture- chronic Left 1st phalanx fracture- chronic Elderly fall Diabetic neuropathy DM2 TOY 1st Left phalanx fx Morbid obesity BMI 53 DM2 HTN HLD Depression PLAN IV abx; IV acyclovir; ID consult; isolation PT consult hba1c/lipids scd dispo: f/u clinical improvement; cct>35mins. 05/26 Hba1c/LDL 06/11. renal fn improving; check labs; cct>35mins. 05/27 check CBC Michelet Cardozo MD, PhD.
[2019-05-27] MEDS: FAMOTIDINE 20 MG/2 ML VIAL IV SCH ×2 (07:52→20:34)
[2019-05-27] MEDS: INSULIN REGULAR, HUMAN 100 UNIT/1 ML 3ML VIAL SQ SCH ×4 (09:00→20:46)
[2019-05-27] MEDS: GABAPENTIN 300 MG CAP PO SCH ×2 (09:27→17:11)
[2019-05-27] MEDS: SERTRALINE HCL 50 MG TAB PO SCH (09:28)
[2019-05-27 09:48] LABS: BASOPHILS # (AUTO) 0.1 (0.0-0.1); BASOPHILS % 0.8 % (0.0-1.0); EOSINOPHILS # (AUTO) 0.4 (0.0-0.4); EOSINOPHILS % 3.5 % (0.0-6.0); HEMATOCRIT 35.1 % (34.2-44.1); HEMOGLOBIN 11.3 g/dL (12.0-16.0); LYMPHOCYTES # (AUTO) 3.8 (1.0-3.2); LYMPHOCYTES % 33.9 % (18.0-39.1); MEAN CORPUSCULAR HEMOGLOBIN 28.4 pg (28-32); MEAN CORPUSCULAR HGB CONC 32.2 g/dL (31-35); MEAN CORPUSCULAR VOLUME 88.2 fL (81-99); MONOCYTES # (AUTO) 0.9 (0.2-0.8); MONOCYTES % 7.8 % (4.4-11.3); NEUTROPHILS % 52.8 % (38.7-80.0); PLATELET COUNT 236 x10e3/uL (140-360); RED BLOOD COUNT 3.98 x10e6/uL (3.6-5.1); RED CELL DISTRIBUTION WIDTH 14.4 % (11.7-14.4)
[2019-05-27] MEDS ORDERED: ACETAMINOPHEN 325 MG TAB PO PRN (14:00)
[2019-05-27] MEDS: TRAMADOL HCL 50 MG TAB PO PRN (23:40)
[2019-05-28] VITALS (7 sets, daily range): BP systolic 141–166; BP diastolic 66–90
[2019-05-28] MEDS: ACYCLOVIR 200 MG CAP PO SCH ×5 (04:25→22:15)
[2019-05-28] MEDS: MORPHINE SULFATE 2 MG/ML SYR 1ML IV PRN ×5 (04:26→22:28)
[2019-05-28] MEDS ORDERED: METOLAZONE 5 MG TAB PO ONE (05:15)
[2019-05-28] MEDS ORDERED: METOLAZONE 5 MG TAB PO PRN (05:15)
[2019-05-28] MEDS: HYDROCODONE/APAP 5MG-325MG TAB PO PRN ×2 (05:29→16:15)
--- NOTE | 2019-05-28 05:49 | NUR ---
PATIENT BP 185/99 AND STAYING ELEVATED, CALLED DR. PIZARRO FOR ORDERS AND PROVIDED PATIENT WITH PRN METOLOZONE AND NORCO. ALSO HAD PATIENT'S HOME MEDS OF METOPROLOL AND HYDRALAZINE CONTINUED FOR BP MAINTENENCE HOWEVER LISINOPRIL WAS NOT CONT PER DR. WILL CONTINUE TO MONITOR PATIENT.
--- NOTE | 2019-05-28 06:55 | NUR ---
IM- progress note O/N no events ROS; no f/c/s/N/V/D/WILLIAM/vision changes/cp/sob/leg pain/dizziness v/s revd PE: tired appearing anicteric ns1s2 mod bs left breast extending to left axilla and left back with dermatomal vesicular erythematous rash no e/t legs a&ox3; nazario flat affect labs/meds revd A/P: Septic Sepsis due to UTI Shingles Right clavicular fracture- chronic Left 1st phalanx fracture- chronic Elderly fall Diabetic neuropathy DM2 TOY 1st Left phalanx fx Morbid obesity BMI 53 DM2 HTN HLD Depression PLAN IV abx; IV acyclovir; ID consult; isolation PT consult hba1c/lipids scd dispo: f/u clinical improvement; cct>35mins. 05/26 Hba1c/LDL 06/11. renal fn improving; check labs; cct>35mins. 05/27 check CBC 05/28 control BP; d/c planning; Michelet Cardozo MD, PhD.
--- NOTE | 2019-05-28 07:15 | NUR ---
Pt received resting in bed. Alert and oriented x4, on contact & airborne isolation due to shingles. Pt with right IJ TLC saline lock. Oriented to staff and surroundings. Encouraged to press call booker if help needed. Call booker within reach. Will monitor
[2019-05-28] MEDS: SERTRALINE HCL 50 MG TAB PO SCH (08:50)
[2019-05-28] MEDS: HYDROCHLOROTHIAZIDE 25 MG TAB PO SCH (08:50)
[2019-05-28] MEDS: GABAPENTIN 300 MG CAP PO SCH ×2 (08:50→16:15)
[2019-05-28] MEDS: METOPROLOL TARTRATE 50 MG TAB PO SCH ×2 (08:50→22:15)
[2019-05-28] MEDS: FAMOTIDINE 20 MG/2 ML VIAL IV SCH ×2 (08:50→22:15)
[2019-05-28] MEDS: DIPHENHYDRAMINE HCL 25 MG CAP PO PRN (08:50)
[2019-05-28] MEDS: INSULIN GLARGINE 100 UNITS/ML VIAL SQ SCH (08:50)
[2019-05-28] MEDS: INSULIN REGULAR, HUMAN 100 UNIT/1 ML 3ML VIAL SQ SCH ×4 (08:50→21:00)
--- NOTE | 2019-05-28 08:50 | NUR ---
All meds given as ordered. Noted pt with crusted shingles to chest, but open lesions to back. Emotional support given. Call booker within reach. Will monitor
[2019-05-28] MEDS ORDERED: METOPROLOL TARTRATE 50 MG TAB PO SCH (09:00)
--- NOTE | 2019-05-28 12:33 | NUR ---
ORDER RECEIVED FOR HH. MET W THE PT AT THE BEDSIDE. DISCUSSED HOME HEALTH NEEDS. PT STATES SHE WILL BE STAYING WITH A FRIEND UPON [place]. REBEKAH @ [address] [place] [id number]; # [phone]. PT CALLED FRIEND TO DISCUSS NEED FOR HH. REBEKAH STATES THE PT WILL NOT BE HOME BOUND AND GETS AROUND INDEPENDENTLY. STATES SHE WILL APPLY TOPICAL MEDS FOR THE PT DAILY TO HER BACK, BUT OTHERWISE SHE HAD NO OTHER NEEDS. ADDRESSED MOBILITY. PT STATES SHE USES A ROLLATOR AND HAD NO ISSUES W AMBULATING AND IS ABLE TO CARRY OUT ADL'S. PT AND FRIEND AGREED SHE DID NOT NEED HH AT THIS TIME. PT STATES SHE USES HER FATHER'S ROLLATOR AND WOULD LIKE A WALKER. STATES SHE HAD SPOKEN W HER PCP ABOUT ORDERING A WALKER ALREADY. STATES SHE WILL F/U W THEM AT HER F/U APPT. CM ENCOURAGED F/U APPT BE MADE PRIOR TO DC. PT VERBALIZED UNDERSTANDING. CM NOTIFIED NURSE HH DECLINED.
[2019-05-28] MEDS ORDERED: FLUCONAZOLE 100 MG/NS 50 ML 50 ML IV ONE (14:00)
[2019-05-28] MEDS ORDERED: GABAPENTIN 300 MG CAP PO SCH (14:00)
--- NOTE | 2019-05-28 14:00 | NUR ---
Pt was straight cathed at this time and 300ml of clear urine.
[2019-05-28] MEDS ORDERED: FLUCONAZOLE 100 MG TAB PO ONE (14:45)
--- NOTE | 2019-05-28 15:15 | NUR ---
Pt requesting to know what her "GRF & creatinine level is." Pt stated that her friend who works in the doctor's office looked at her chart and it stated that she is in renal failure. Educated pt regarding most recent lab from yesterday (05/27). Reassured her that her lab values are now back to normal. Advised pt to tell her friend not to look in her chart due to HIPAA rules & violation. Will follow up
--- NOTE | 2019-05-28 15:30 | NUR ---
Pt c/o regarding having a yeast infection. Assessed perineal area, and severe redness to labia, and skin peel to inner thighs. Dr. Whtye notified, and Diflucan ordered. Emotional support given. Will monitor
[2019-05-28] MEDS: NYSTATIN 15 GM POWDER UD BTL TOP SCH (16:15)
--- NOTE | 2019-05-28 16:20 | NUR ---
Pt with order for med-surg. Handoff given to RN covering room 200. Will transfer in bed
--- NOTE | 2019-05-28 17:00 | NUR ---
Pt transferred to room 200 with all belongings
--- NOTE | 2019-05-28 17:15 | NUR ---
Pt received from ICU at this time. Pt is aox4 and able to verbalize needs. Denies any pain at this time. 0 s/s of acute distress noted. Pt is on contact and airborne isolation.
--- NOTE | 2019-05-28 19:25 | NUR ---
Patient received sitting up in bed. AAO x 3. Patient had no complaints of pain. Respirations even and non-labored. Fall precautions implemented. Patient instructed to call for assistance when needed. Call light within reach.
[2019-05-29] VITALS (8 sets, daily range): BP systolic 112–141; BP diastolic 55–77
[2019-05-29] MEDS: MORPHINE SULFATE 2 MG/ML SYR 1ML IV PRN ×6 (02:15→21:55)
[2019-05-29] MEDS: DIPHENHYDRAMINE HCL 25 MG CAP PO PRN ×3 (02:16→17:15)
--- NOTE | 2019-05-29 02:30 | NUR ---
Stool specimen sent to lab for analysis.
[2019-05-29] MEDS: ACYCLOVIR 200 MG CAP PO SCH ×5 (05:15→21:25)
--- NOTE | 2019-05-29 07:00 | NUR ---
Shift report given to oncoming nurse regarding patient's status.
[2019-05-29] MEDS: INSULIN GLARGINE 100 UNITS/ML VIAL SQ SCH (08:30)
[2019-05-29] MEDS: INSULIN REGULAR, HUMAN 100 UNIT/1 ML 3ML VIAL SQ SCH ×4 (08:30→21:00)
[2019-05-29] MEDS: NYSTATIN 15 GM POWDER UD BTL TOP SCH ×2 (09:00→17:15)
[2019-05-29] MEDS: HYDROCHLOROTHIAZIDE 25 MG TAB PO SCH (09:03)
[2019-05-29] MEDS: FAMOTIDINE 20 MG/2 ML VIAL IV SCH ×2 (09:03→21:25)
[2019-05-29] MEDS: METOPROLOL TARTRATE 50 MG TAB PO SCH ×2 (09:04→21:00)
[2019-05-29] MEDS: GABAPENTIN 300 MG CAP PO SCH ×2 (09:04→17:15)
[2019-05-29] MEDS: SERTRALINE HCL 50 MG TAB PO SCH (09:04)
--- NOTE | 2019-05-29 11:26 | NUR ---
IM- progress note O/N no events ROS; no f/c/s/N/V/D/WILLIAM/vision changes/cp/sob/leg pain/dizziness v/s revd PE: tired appearing anicteric ns1s2 mod bs left breast extending to left axilla and left back with dermatomal vesicular erythematous rash no e/t legs a&ox3; nazario flat affect labs/meds revd A/P: Septic Sepsis due to UTI Shingles Right clavicular fracture- chronic Left 1st phalanx fracture- chronic Elderly fall Diabetic neuropathy DM2 TOY 1st Left phalanx fx Morbid obesity BMI 53 DM2 HTN HLD Depression PLAN IV abx; IV acyclovir; ID consult; isolation PT consult hba1c/lipids scd dispo: f/u clinical improvement; cct>35mins. 05/26 Hba1c/LDL 06/11. renal fn improving; check labs; cct>35mins. 05/27 check CBC 05/28 control BP; d/c planning; 05/29 improving Michelet Cardozo MD, PhD.
--- NOTE | 2019-05-29 16:14 | NUR ---
pt refusing due to lack of sleep and pain , will f/u on friday Addendum: 05/29/19 at 1615 by Cas Flores PTA Amended: Links added.
--- NOTE | 2019-05-29 16:41 | NUR ---
Nutrition Screen Note RD Recommendation for Physician: 1.Continue with current diet order Plan of Care: RD following, monitoring for tolerance and adequacy Nutrition reason for involvement: LOS Primary Diagnose(s): Acute renal failure, Hyponatremia, Pneumonia PMH: Diabetes mellitus type 2, hypertension, hyperlipidemia, shingles,suspected left great toe osteomyelitis, ambulatory dysfunction (patient uses a walker at home), + depression Ht: 62 in Wt: 290 lbs BMI: 53.03kg/m2 IBW:110lbs +/- 10% RD Assessment: (05/29) Chart reviewed. Labs and meds reviewed. 63 y/o F admitted with syncope, severe sepsis with shock and acute cardiovascular and renal failure. Visited patient in room, patient with no complaints during time of visit. Reported fair appetite. PCT recorded 75-100% meal intake. Patient reports gaining about 90 lbs over past year due to medication, tries to adhere to diabetic diet at home. No GI complaints reported and pt denied any difficulties with chewing or swallowing during time of visit. Will continue to monitor and follow. Current Diet: ADA Diet Malnutrition Evaluation (05/29) The patient does not meet criteria for a specified degree of malnutrition at this time. Will re-evaluate at follow-up as appropriate. Diet Education Needs Assessment: Diet education not indicated. Nutrition Care Level: LOW Signed: Leeanna Rowland, MS, RDN, LD
[2019-05-29] MEDS ORDERED: CALAMINE LOTION 4 OZ BOTTLE TP PRN (17:15)
[2019-05-29 17:38] LABS: BASOPHILS # (AUTO) 0.1 (0.0-0.1); BASOPHILS % 0.6 % (0.0-1.0); EOSINOPHILS # (AUTO) 0.3 (0.0-0.4); EOSINOPHILS % 2.2 % (0.0-6.0); HEMATOCRIT 37.2 % (34.2-44.1); HEMOGLOBIN 11.9 g/dL (12.0-16.0); LYMPHOCYTES # (AUTO) 3.1 (1.0-3.2); LYMPHOCYTES % 21.5 % (18.0-39.1); MEAN CORPUSCULAR HEMOGLOBIN 28.1 pg (28-32); MEAN CORPUSCULAR VOLUME 87.9 fL (81-99); MONOCYTES # (AUTO) 1.1 (0.2-0.8); MONOCYTES % 7.6 % (4.4-11.3); NEUTROPHILS # (AUTO) 9.6 (2.1-6.9); NEUTROPHILS % 66.6 % (38.7-80.0); PLATELET COUNT 286 x10e3/uL (140-360); RED BLOOD COUNT 4.23 x10e6/uL (3.6-5.1); RED CELL DISTRIBUTION WIDTH 14.3 % (11.7-14.4)
[2019-05-29 17:57] LABS: ANION GAP 13.9 mmol/L (8-16); BLOOD UREA NITROGEN 15 mg/dL (7-26); BUN/CREATININE RATIO 19 (6-25); CALCIUM 9.5 mg/dL (8.4-10.2); CARBON DIOXIDE 30 mmol/L (22-29); CHLORIDE 99 mmol/L (98-107); CREATININE, SERUM 0.77 mg/dL (0.57-1.11); EST GLOMERULAR FILTRATION RATE > 60 ML/MIN (60-); GLUCOSE 163 mg/dL (74-118); POTASSIUM 3.9 mmol/L (3.5-5.1); SODIUM 139 mmol/L (136-145)
--- NOTE | 2019-05-29 19:23 | NUR ---
Patient received lying in bed. AAO x 4. No acute distress noted. Safety measures implemented. Patient instructed to call for assistance when needed. Call light within reach.
[2019-05-30] VITALS (8 sets, daily range): BP systolic 121–130; BP diastolic 59–80
--- NOTE | 2019-05-30 01:20 | NUR ---
Calamine lotion applied to shingle rash on patient's back , left flank and left breast region. Rt. IJ dressing changed. Patient tolerated well.
--- NOTE | 2019-05-30 03:00 | NUR ---
New IV insertion to provide peripheral vascular access ----left upper arm 22G. Patient tolerated well.
[2019-05-30] MEDS: MORPHINE SULFATE 2 MG/ML SYR 1ML IV PRN ×6 (03:36→22:35)
[2019-05-30] MEDS: HYDROCODONE/APAP 5MG-325MG TAB PO PRN (05:06)
[2019-05-30] MEDS: ACYCLOVIR 200 MG CAP PO SCH ×5 (05:06→21:11)
[2019-05-30] MEDS: DIPHENHYDRAMINE HCL 25 MG CAP PO PRN ×2 (06:47→18:55)
--- NOTE | 2019-05-30 07:01 | NUR ---
Patient resting comfortably. Shift report given to oncoming nurse regarding patient's status.
[2019-05-30] MEDS: INSULIN REGULAR, HUMAN 100 UNIT/1 ML 3ML VIAL SQ SCH ×4 (08:00→21:11)
[2019-05-30] MEDS: INSULIN GLARGINE 100 UNITS/ML VIAL SQ SCH (08:00)
[2019-05-30] MEDS: HYDROCHLOROTHIAZIDE 25 MG TAB PO SCH (08:59)
[2019-05-30] MEDS: FAMOTIDINE 20 MG/2 ML VIAL IV SCH ×2 (08:59→21:11)
[2019-05-30] MEDS: METOPROLOL TARTRATE 50 MG TAB PO SCH ×2 (09:00→21:12)
[2019-05-30] MEDS: SERTRALINE HCL 50 MG TAB PO SCH (09:00)
[2019-05-30] MEDS: NYSTATIN 15 GM POWDER UD BTL TOP SCH ×2 (09:00→17:31)
[2019-05-30] MEDS: GABAPENTIN 300 MG CAP PO SCH ×2 (09:00→17:31)
--- NOTE | 2019-05-30 10:00 | NUR ---
Patient has patient peripheral IV access in E. Per MD order, right IJ triple lumen central line was removed with tip intact. Dressing was applied to site. Patient tolerated well with no complaints. She denies needing anything else at this time, call light in reach.
--- NOTE | 2019-05-30 17:07 | NUR ---
IM- progress Note O/N no events ROS; no f/c/s/N/V/D/WILLIAM/vision changes/cp/sob/leg pain/dizziness v/s revd PE: tired appearing anicteric ns1s2 mod bs left breast extending to left axilla and left back with dermatomal vesicular erythematous rash no e/t legs a&ox3; nazario flat affect labs/meds revd A/P: Septic Sepsis due to UTI Shingles Right clavicular fracture- chronic Left 1st phalanx fracture- chronic Elderly fall Diabetic neuropathy DM2 TOY 1st Left phalanx fx Morbid obesity BMI 53 DM2 HTN HLD Depression PLAN IV abx; IV acyclovir; ID consult; isolation PT consult hba1c/lipids scd dispo: f/u clinical improvement; cct>35mins. 05/26 Hba1c/LDL 06/11. renal fn improving; check labs; cct>35mins. 05/27 check CBC 05/28 control BP; d/c planning; 05/29 improving 05/30 improving; d/c planning; Michelet Cardozo MD, PhD.
--- NOTE | 2019-05-30 19:15 | NUR ---
Patient received sitting in bed. Patient denies pain or discomfort at time. Call light within reach.
[2019-05-31 01:04] VITALS: BP 124/68
[2019-05-31] MEDS: HYDROCODONE/APAP 5MG-325MG TAB PO PRN (01:37)
[2019-05-31] MEDS: MORPHINE SULFATE 2 MG/ML SYR 1ML IV PRN ×4 (02:41→12:45)
[2019-05-31 05:06] LABS: BASOPHILS # (AUTO) 0.1 (0.0-0.1); BASOPHILS % 0.7 % (0.0-1.0); EOSINOPHILS # (AUTO) 0.5 (0.0-0.4); EOSINOPHILS % 2.9 % (0.0-6.0); HEMATOCRIT 36.1 % (34.2-44.1); HEMOGLOBIN 11.6 g/dL (12.0-16.0); LYMPHOCYTES # (AUTO) 3.8 (1.0-3.2); MEAN CORPUSCULAR HEMOGLOBIN 28.4 pg (28-32); MEAN CORPUSCULAR HGB CONC 32.1 g/dL (31-35); MEAN CORPUSCULAR VOLUME 88.3 fL (81-99); MONOCYTES # (AUTO) 1.4 (0.2-0.8); MONOCYTES % 8.6 % (4.4-11.3); NEUTROPHILS # (AUTO) 10.3 (2.1-6.9); NEUTROPHILS % 62.9 % (38.7-80.0); PLATELET COUNT 279 x10e3/uL (140-360); RED BLOOD COUNT 4.09 x10e6/uL (3.6-5.1); RED CELL DISTRIBUTION WIDTH 14.3 % (11.7-14.4)
[2019-05-31 05:13] VITALS: BP 108/53
[2019-05-31] MEDS: ACYCLOVIR 200 MG CAP PO SCH ×4 (05:17→16:58)
[2019-05-31 05:21] LABS: ANION GAP 13.1 mmol/L (8-16); BLOOD UREA NITROGEN 18 mg/dL (7-26); BUN/CREATININE RATIO 24 (6-25); CALCIUM 9.8 mg/dL (8.4-10.2); CARBON DIOXIDE 29 mmol/L (22-29); CHLORIDE 97 mmol/L (98-107); CREATININE, SERUM 0.75 mg/dL (0.57-1.11); EST GLOMERULAR FILTRATION RATE > 60 ML/MIN (60-); GLUCOSE 150 mg/dL (74-118); POTASSIUM 4.1 mmol/L (3.5-5.1); SODIUM 135 mmol/L (136-145)
--- NOTE | 2019-05-31 07:00 | NUR ---
Walking rounds done. Report given to oncoming nurse.
--- NOTE | 2019-05-31 07:00 | NUR ---
received am report from nurse, morning rounds done. pt is alert lying comfortably in bed. pt has no complaints. call light within reach, instructed to call nurse for help
[2019-05-31 08:00] VITALS: BP 142/84
[2019-05-31] MEDS: HYDROCHLOROTHIAZIDE 25 MG TAB PO SCH (08:00)
[2019-05-31] MEDS: SERTRALINE HCL 50 MG TAB PO SCH (08:00)
[2019-05-31] MEDS: FAMOTIDINE 20 MG/2 ML VIAL IV SCH (08:00)
[2019-05-31] MEDS: METOPROLOL TARTRATE 50 MG TAB PO SCH (08:00)
[2019-05-31] MEDS: INSULIN REGULAR, HUMAN 100 UNIT/1 ML 3ML VIAL SQ SCH ×3 (08:00→16:58)
[2019-05-31] MEDS: GABAPENTIN 300 MG CAP PO SCH ×2 (08:00→16:58)
--- NOTE | 2019-05-31 09:55 | NUR ---
D/C summary Principal Dx: Septic Sepsis due to UTI Shingles Right clavicular fracture- chronic Left 1st phalanx fracture- chronic Elderly fall Secondary Dx: Diabetic neuropathy DM2 TOY 1st Left phalanx fx Morbid obesity BMI 53 DM2 HTN HLD Depression PLAN IV abx; IV acyclovir; ID consult; isolation PT consult hba1c/lipids scd dispo: f/u clinical improvement; cct>35mins. 05/26 Hba1c/LDL 06/11. renal fn improving; check labs; cct>35mins. 05/27 check CBC 05/28 control BP; d/c planning; 05/29 improving 05/30 improving; d/c planning; d/c home on acyclovir f/u pcp 1 week stable d/c >35mins Michelet Cardozo MD, PhD.
[2019-05-31] MEDS: INSULIN GLARGINE 100 UNITS/ML VIAL SQ SCH (10:09)
[2019-05-31 10:58] VITALS: BP 125/61
[2019-05-31] MEDS: NYSTATIN 15 GM POWDER UD BTL TOP SCH ×2 (11:55→16:58)
[2019-05-31] MEDS ORDERED: ACYCLOVIR200 MG PO (14:08)
[2019-05-31 15:37] VITALS: BP 141/70
[2019-05-31] MEDS: TRAMADOL HCL 50 MG TAB PO PRN (17:50)
== END 2019-05-31 18:37 | disposition home or self-care (01) | DRG 871 ==
LOC: ER 16:11 → ERHOLD 20:10 → ICU 21:40 → MED/SURG2 05-28 17:09
PROVIDERS: ADMIT Internal Medicine; ATTEND Internal Medicine
PROC: 02HV33Z Insertion of Infusion Device into Superior Vena Cava, Percutaneous Approach (ICD-10-PCS; principal; 2019-05-24)
DX: A41.9 Sepsis, unspecified organism (principal); R65.21 Severe sepsis with septic shock; N39.0 Urinary tract infection, site not specified; N17.9 Acute kidney failure, unspecified; Z68.43 Body mass index [BMI] 50.0-59.9, adult; M86.8X7 Other osteomyelitis, ankle and foot; B02.9 Zoster without complications; R29.6 Repeated falls; E11.9 Type 2 diabetes mellitus without complications; R26.9 Unspecified abnormalities of gait and mobility; E11.69 Type 2 diabetes mellitus with other specified complication; E11.42 Type 2 diabetes mellitus with diabetic polyneuropathy; Z79.4 Long term (current) use of insulin; E86.0 Dehydration; W19.XXXA Unspecified fall, initial encounter; Y92.009 Unspecified place in unspecified non-institutional (private) residence as the place of occurrence of the external cause; S42.001D Fracture of unspecified part of right clavicle, subsequent encounter for fracture with routine healing; S92.412D Displaced fracture of proximal phalanx of left great toe, subsequent encounter for fracture with routine healing; E66.01 Morbid (severe) obesity due to excess calories; F32.9 Major depressive disorder, single episode, unspecified
CPT/HCPCS: 36415; 70450; 71045; 72125; 80048; 80053; 80061; 80307; 80329; 81001; 82550; 82553; 82948; 83036; 83605; 83735; 83880; 84484; 85025; 85610; 85730; 87040; 87086; 87493; 93005; 93306; 96372; 97139; 99284; J0456; J1450; J1815; J1817; J2270; J2543; J3370; J7030; J7050

== ENCOUNTER → 2020-07-20 | Day surgery (SDC) | payer OTHER ==
[2020-07-17 12:04] LABS: BASOPHILS # (AUTO) 0.1 (0.0-0.1); BASOPHILS % 0.7 % (0.0-1.0); EOSINOPHILS # (AUTO) 0.3 (0.0-0.4); EOSINOPHILS % 2.6 % (0.0-6.0); HEMATOCRIT 38.5 % (34.2-44.1); LYMPHOCYTES # (AUTO) 2.7 (1.0-3.2); LYMPHOCYTES % 20.6 % (18.0-39.1); MEAN CORPUSCULAR HEMOGLOBIN 28.1 pg (28-32); MEAN CORPUSCULAR HGB CONC 31.2 g/dL (31-35); MEAN CORPUSCULAR VOLUME 90.2 fL (81-99); MONOCYTES # (AUTO) 1.2 (0.2-0.8); MONOCYTES % 9.1 % (4.4-11.3); NEUTROPHILS # (AUTO) 8.6 (2.1-6.9); NEUTROPHILS % 65.7 % (38.7-80.0); PLATELET COUNT 190 x10e3/uL (140-360); RED BLOOD COUNT 4.27 x10e6/uL (3.6-5.1); RED CELL DISTRIBUTION WIDTH 14.3 % (11.7-14.4)
[~2020-07-20] MED LIST changes: +ACYCLOVIR200 MG PO; +ATORVASTATIN CA20 MG PO; +BUPROPION XL150 MG PO; +FENTANYL CITRATE/PF 100MCG/2 ML INJ ONE; +HUMALOG100 UNIT/1 SC; +HYOSCYAMINE 0.125 MG TAB ONE; +LIDOCAINE HCL 2% LOCAL INJ 5 ML SDV VIAL INJ ONE; +LIDOPATCH1 EACH TOP; +MELOXICAM7.5 MG PO; +MIDAZOLAM HCL 2 MG/2 ML VIAL ONE; +PROPOFOL IV EMULSION 10 MG/ML 20 ML VIAL ONE; +TIZANIDINE HCL4 MG PO; +TRULICITY1.5 MG/0.5 SC
[2020-07-20 14:00] VITALS: BP 107/64
--- NOTE | 2020-07-20 18:02 | Operative Report ---
DATE OF PROCEDURE: 07/20/2020 SURGEON: Adrian Marquez MD PROCEDURE: Flexible sigmoidoscopy. INDICATION FOR PROCEDURE: Personal history of colon polyps, intermittent diarrhea, fecal urgency. MEDICATIONS: The patient was done under MAC, please see anesthesiologist's note. PROCEDURE IN DETAIL: With the patient in the left lateral decubitus position, a flexible fiberoptic Olympus gastroscope was introduced into the rectum under direct visualization without any difficulty. Prep was poor with large amount of retained fecal material. The scope was then advanced beyond 20 cm due to the poor prep. It was retroflexed into the distal rectum and some small internal hemorrhoids were noted, none of which was actively bleeding. The scope was then straightened out, it was subsequently withdrawn, and the patient tolerated the procedure well. IMPRESSION: 1. Flex-sig to approximately 20 cm from the anal verge, did not advance any further due to poor prep. 2. Small internal hemorrhoids, none actively bleeding. PLAN: The patient will need a followup colonoscopy after a better prep. Adrian Marquez MD [facility] [place][id number] cc: Fannie Barreto
== END | disposition home or self-care (01) ==
LOC: OR 12:44
PROVIDERS: ATTEND Internal Medicine Gastroenterology
DX: K52.9 Noninfective gastroenteritis and colitis, unspecified (principal); Z86.010 Personal history of colon polyps; K59.00 Constipation, unspecified; K64.8 Other hemorrhoids; G47.33 Obstructive sleep apnea (adult) (pediatric); I10 Essential (primary) hypertension; E11.9 Type 2 diabetes mellitus without complications; E66.01 Morbid (severe) obesity due to excess calories; M19.90 Unspecified osteoarthritis, unspecified site; M54.9 Dorsalgia, unspecified; E78.5 Hyperlipidemia, unspecified; F32.9 Major depressive disorder, single episode, unspecified; Z01.810 Encounter for preprocedural cardiovascular examination; Z01.812 Encounter for preprocedural laboratory examination; Z11.59 Encounter for screening for other viral diseases; Z79.4 Long term (current) use of insulin; Z68.42 Body mass index [BMI] 45.0-49.9, adult; Z80.0 Family history of malignant neoplasm of digestive organs
CPT/HCPCS: 36415 ×2; 45330; 82948; 85025; 93005; J2001; J2250; J2704; J3010; U0002; 45378